=== PATIENT | female | born 1995 | race Caucasian/White ===

== ENCOUNTER 2018-10-29 21:33 | Emergency (ER) | payer MEDICAID ==
--- NOTE | 2018-10-29 21:55 | ER ---
Nurse's Notes [facility] Name: Domonique Tellez Age: 23 yrs Sex: Female : 1995 Arrival Date: 10/29/2018 Time: 21:36 Bed 18 Private MD: Diagnosis: Dental pain Presentation: 10/29 21:40 Presenting complaint: Patient states: 2 days of right sided dental pain. Transition of la1 care: patient was not received from another setting of care. Onset of symptoms was October 29, 2018. Risk Assessment: Do you want to hurt yourself or someone else? Patient reports no desire to harm self or others. Initial Sepsis Screen: Does the patient meet any 2 criteria? No. Patient's initial sepsis screen is negative. Does the patient have a suspected source of infection? No. Patient's initial sepsis screen is negative. Care prior to arrival: None. 21:40 Method Of Arrival: Ambulatory la1 21:40 Acuity: MORALES 5 la1 Triage Assessment: 21:40 General: Appears in no apparent distress. uncomfortable, Behavior is calm, cooperative, rr5 appropriate for age. 21:40 EENT: Reports pain in lower right first molar and lower right second molar. 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 - Social history:: Smoking status: Patient uses tobacco products, smokes one pack cigarettes per day. - Ebola Screening: : No symptoms or risks identified at this time. Screenin:40 Abuse screen: Denies threats or abuse. Denies injuries from another. Nutritional rr5 screening: No deficits noted. Tuberculosis screening: No symptoms or risk factors identified. Fall Risk None identified. Total Smith Fall Scale indicates No Risk (0-24 pts). Assessment: 21:40 General: Appears in no apparent distress. uncomfortable, Behavior is calm, cooperative, rr5 appropriate for age. Pain: Complains of pain in right lower 1st and 2nd molar Pain does not radiate. Pain currently is 10 out of 10 on a pain scale. Quality of pain is described as aching, Pain began gradually, Is intermittent. Neuro: Level of Consciousness is awake, alert, obeys commands, Oriented to person, place, time, situation. Cardiovascular: Capillary refill < 3 seconds Patient's skin is warm and dry. 21:40 Respiratory: Airway is compromised Respiratory effort is even, unlabored, Respiratory rr5 pattern is regular, symmetrical. GI: Abdomen is flat. : No signs and/or symptoms were reported regarding the genitourinary system. EENT: right tooth 1st and 2nd molar black in color. Reports pain in right lower 1st and 2nd molar. Derm: Skin is intact, Skin temperature is warm. Musculoskeletal: Capillary refill < 3 seconds, Range of motion:. 22:20 Reassessment: Patient appears in no apparent distress at this time. Patient is alert, rr5 oriented x 3, equal unlabored respirations, skin warm/dry/pink. discharge instruction given and explained without complaints made. Vital Signs: 21:41 BP 146 / 76; Pulse 98; Resp 16; Temp 97.6; Pulse Ox 98% on R/A; Weight 52.16 kg; Height la1 4 ft. 9 in. (144.78 cm); 22:20 BP 135 / 87; Pulse 85; Resp 17; Temp 98.1; Pulse Ox 100% on R/A; rr5 21:41 Body Mass Index 24.89 (52.16 kg, 144.78 cm) la1 ED Course: 21:36 Patient arrived in ED. as 21:40 Triage completed. la1 21:40 Patient has correct armband on for positive identification. rr5 21:41 Arm band placed on left wrist. la1 21:42 Avni Barron NP is PHCP. pm1 21:42 Riley Guevara MD is Attending Physician. pm1 21:44 Edward Ivan RN is Primary Nurse. rr5 22:20 No provider procedures requiring assistance completed. Patient did not have IV access rr5 during this emergency room visit. Administered Medications: 22:05 Drug: [place] 5 mg-325 mg 1 tabs Route: PO; rr5 22:20 Follow up: Response: No adverse reaction rr5 22:20 Follow up: Response: No adverse reaction; Medication administered at discharge. rr5 Point of Care Testing: Urine : 21:45 hCG Reading: Negative; Control Reading: Positive; rr5 Outcome: 21:54 Discharge ordered by . pm1 22:20 Discharged to home ambulatory, with family. rr5 22:20 Condition: stable 22:20 Discharge instructions given to patient, family, Instructed on discharge instructions, follow up and referral plans. medication usage, Demonstrated understanding of instructions, follow-up care, medications, Prescriptions given X 2. 22:22 Patient left the ED. rr5 Signatures: Sherly Blanchard Lee RN RN la1 Avni Barron NP MAINTENANCE REPAIRMAN pm1 Edward Ivan RN RN rr5
--- NOTE | 2018-10-29 21:55 | EDPHYS ---
Physician Documentation [facility] Name: Domonique Tellez Age: 23 yrs Sex: Female : 1995 Arrival Date: 10/29/2018 Time: 21:36 Bed 18 Private MD: ED Physician Riley Guevara HPI: 10/29 21:50 This 23 yrs old Female presents to ER via Ambulatory with complaints of pm1 Toothache. 21:50 The patient presents with pain. The problem is located in the lower right first molar pm1 and lower right second molar. Onset: The symptoms/episode began/occurred 3 day(s) ago. Duration: The symptoms are chronic, present for many months but worse for the past few days, are continuous. Modifying factors: The symptoms are alleviated by nothing. Associated signs and symptoms: Pertinent negatives: dysphagia, fever, inability to eat, swelling, mandibular. Severity of symptoms: in the emergency department the symptoms are actually worse. The patient has experienced similar episodes in the past, multiple times. The patient has not recently seen a physician. 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 - Social history:: Smoking status: Patient uses tobacco products, smokes one pack cigarettes per day. - Ebola Screening: : No symptoms or risks identified at this time. ROS: 21:50 Constitutional: Negative for fever, chills, and weight loss, Eyes: Negative for injury, pm1 pain, redness, and discharge. 21:50 Neck: Negative for injury, pain, and swelling, Cardiovascular: Negative for chest pain, palpitations, and edema, Respiratory: Negative for shortness of breath, cough, wheezing, and pleuritic chest pain, Abdomen/GI: Negative for abdominal pain, nausea, vomiting, diarrhea, and constipation, Back: Negative for injury and pain, MS/Extremity: Negative for injury and deformity, Skin: Negative for injury, rash, and discoloration. 21:50 Neuro: Negative for headache, weakness, numbness, tingling, and seizure. 21:50 ENT: Positive for dental pain, Negative for ear pain, sore throat, difficulty swallowing, difficulty handling secretions, hoarseness. Exam: 21:50 Constitutional: This is a well developed, well nourished patient who is awake, alert, pm1 and in no acute distress. Head/Face: Normocephalic, atraumatic. Eyes: Pupils equal round and reactive to light, extra-ocular motions intact. Lids and lashes normal. Conjunctiva and sclera are non-icteric and not injected. Cornea within normal limits. Periorbital areas with no swelling, redness, or edema. 21:50 Neck: Trachea midline, no thyromegaly or masses palpated, and no cervical lymphadenopathy. Supple, full range of motion without nuchal rigidity, or vertebral point tenderness. No Meningismus. Chest/axilla: Normal chest wall appearance and motion. Nontender with no deformity. No lesions are appreciated. Cardiovascular: Regular rate and rhythm with a normal S1 and S2. No gallops, murmurs, or rubs. Normal PMI, no JVD. No pulse deficits. Respiratory: Lungs have equal breath sounds bilaterally, clear to auscultation and percussion. No rales, rhonchi or wheezes noted. No increased work of breathing, no retractions or nasal flaring. Back: No spinal tenderness. No costovertebral tenderness. Full range of motion. Skin: Warm, dry with normal turgor. Normal color with no rashes, no lesions, and no evidence of cellulitis. MS/ Extremity: Pulses equal, no cyanosis. Neurovascular intact. Full, normal range of motion. 21:50 ENT: External ear(s): are unremarkable, Ear canal(s): are normal, TM's: are normal, Nose: is normal, Mouth: is normal, Posterior pharynx: is normal, Dental exam: abscess, is not appreciated, dental caries, that is moderate, diffusely, gum swelling, not appreciated. 21:50 Neuro: Orientation: is normal, Motor: is normal, moves all fours, Gait: is steady, at a normal pace, without difficulty. Vital Signs: 21:41 BP 146 / 76; Pulse 98; Resp 16; Temp 97.6; Pulse Ox 98% on R/A; Weight 52.16 kg; Height la1 4 ft. 9 in. (144.78 cm); 22:20 BP 135 / 87; Pulse 85; Resp 17; Temp 98.1; Pulse Ox 100% on R/A; rr5 21:41 Body Mass Index 24.89 (52.16 kg, 144.78 cm) la1 MDM: 21:46 Patient medically screened. pm1 21:50 Data reviewed: vital signs. Data interpreted: Pulse oximetry: on room air is 98 %. pm1 Interpretation: normal. Counseling: I had a detailed discussion with the patient and/or guardian regarding: the historical points, exam findings, and any diagnostic results supporting the discharge/admit diagnosis, the need for outpatient follow up, for definitive care, a dentist, to return to the emergency department if symptoms worsen or persist or if there are any questions or concerns that arise at home. Administered Medications: 22:05 Drug: [place] 5 mg-325 mg 1 tabs Route: PO; rr5 22:20 Follow up: Response: No adverse reaction rr5 22:20 Follow up: Response: No adverse reaction; Medication administered at discharge. rr5 Point of Care Testing: Urine : 21:45 hCG Reading: Negative; Control Reading: Positive; rr5 Disposition: 10/30 04:29 Co-signature as Attending Physician, Riley Guevara MD. Disposition: 10/29/18 21:54 Discharged to Home. Impression: Dental pain. - Condition is Stable. - Discharge Instructions: Dental Pain. - Prescriptions for Augmentin 875- 125 mg Oral Tablet - take 1 tablet by ORAL route every 12 hours for 10 days; 20 tablet. Tylenol- Codeine #3 300-30 mg Oral Tablet - take 2 tablets by ORAL route every 6 hours As needed; 20 tablet. - Medication Reconciliation Form, Thank You Letter, Antibiotic Education, Prescription Opioid Use form. - Follow up: Emergency Department; When: As needed; Reason: Worsening of condition. Follow up: Private Physician; When: 2 - 3 days; Reason: Recheck today's complaints, Continuance of care, Re-evaluation by your physician. - Problem is new. - Symptoms have improved. Signatures: Thomas Madsen RN RN la1 Avni Barron, AIR DIRECTOR AIR DIRECTOR pm1 Riley Guevara MD MD Edward Ivan RN RN rr5 Corrections: (The following items were deleted from the chart) 10/29 22:22 21:54 10/29/2018 21:54 Discharged to Home. Impression: Dental pain. Condition is rr5 Stable. Forms are Medication Reconciliation Form, Thank You Letter, Antibiotic Education, Prescription Opioid Use. Follow up: Emergency Department; When: As needed; Reason: Worsening of condition. Follow up: Private Physician; When: 2 - 3 days; Reason: Recheck today's complaints, Continuance of care, Re-evaluation by your physician. Problem is new. Symptoms have improved. pm1
[2018-10-29] MEDS ORDERED: HYDROCODONE/APAP 5/325 MG TAB ONE (22:14)
== END 2018-10-29 22:22 | disposition home or self-care (01) ==
LOC: ER 21:33
DX: K08.89 Other specified disorders of teeth and supporting structures (principal); I10 Essential (primary) hypertension; F17.210 Nicotine dependence, cigarettes, uncomplicated
CPT/HCPCS: 99283